=== PATIENT | female | born 1970 | race African-American/Black ===

== ENCOUNTER 2016-12-11 07:42 | Emergency (ER) | payer SELFPAY ==
[~2016-12-11] VITALS: Ht 165.1 cm; Wt 68.0 kg
--- NOTE | 2016-12-11 08:10 | NUR ---
Patient discharged to home in stable conditon. Written and verbal after care instructions given. Patient verbalizes understanding of instructions.pt walks in steay gait, no sign of distress.
== END 2016-12-11 08:34 | disposition home or self-care (01) ==
LOC: ER 07:42
DX: L30.9 Dermatitis, unspecified (principal); Z88.1 Allergy status to other antibiotic agents; Z88.2 Allergy status to sulfonamides; Z88.8 Allergy status to other drugs, medicaments and biological substances
CPT/HCPCS: 99283; A4663